=== PATIENT | female | born 1985 | race Caucasian/White ===

== ENCOUNTER 2022-05-27 13:52 | Emergency (ER) | payer MEDICARE, MEDICAID ==
[~2022-05-27 13:52] MED LIST: FER325T; PANT40TA39 PO; PRO2.5T PO
== END 2022-05-27 15:43 | disposition left against medical advice (07) ==
LOC: ER 13:53
DX: Z04.6 Encounter for general psychiatric examination, requested by authority (principal); Z53.21 Procedure and treatment not carried out due to patient leaving prior to being seen by health care provider